=== PATIENT | male | born 1980 | race Caucasian/White ===

== ENCOUNTER → 2018-01-06 | Outpatient (CLI) | payer SELFPAY | END | disposition home or self-care (01) | LOC: LAB 08:10 | PROVIDERS: ATTEND Pathology Anatomic Pathology & Clinical Pathology | DX: Z53.9 Procedure and treatment not carried out, unspecified reason (principal) ==

== ENCOUNTER 2020-09-19 09:49 | Day surgery (SDC) | payer BC ==
[2020-09-13 14:00] VITALS: BMI 34.5
[~2020-09-19 09:49] MED LIST: LACTATED RINGERS 1,000 ML IV SCH; LIDOCAINE 1% (10MG/ML) FOR IV START INTRADERMA PRN
[2020-09-19 10:04] VITALS: TEMP 98.7
[2020-09-19] MEDS ORDERED: LACTATED RINGERS 1,000 ML IV ONE (10:04)
[2020-09-19] MEDS ORDERED: PROPOFOL 10 MG/ML 20 ML VIAL IV ONE (11:04)
--- NOTE | 2020-09-19 11:35 | P.PCN ---
Date of Procedure: 09/19/20 Description of Procedure: BRIEF HISTORY: Patient is a 39-year-old male presenting for outpatient colonoscopy for evaluation of family history of colon cancer. He reports colon cancer in his grandmother in high-risk polyps in his mother. Denies any change in bowel habits, blood per rectum or prior colonoscopy. PROCEDURE PERFORMED: Colonoscopy. PREOPERATIVE DIAGNOSIS: Family history of colon cancer, no prior colonoscopy. ESTIMATED BLOOD LOSS: Minimal. IV sedation per Anesthesia. PROCEDURE: After informed consent was obtained, the patient, was brought into the endoscopy unit. IV sedation was administered by Anesthesia under continuous monitoring. Digital rectal examination was normal. Initially the Olympus CF-190 flexible video colonoscope was then inserted in the rectum, gradually advanced into the cecum without any difficulty. Careful examination was performed as the scope was gradually being withdrawn. Ileocecal valve and the appendiceal orifice were visualized and appeared normal. Prep was excellent. Mucosa of the cecum, ascending colon, transverse colon, descending colon, sigmoid colon, and rectum appeared normal. Retroflexion was performed in the rectum and no lesions were seen, low-grade internal hemorrhoids seen. The patient tolerated the procedure well. IMPRESSION: Normal-appearing colon from rectum to cecum. Internal hemorrhoids. RECOMMENDATIONS: Findings of this examination were discussed with the patient and his family. Okay to resume diet. Okay to resume medications. Recommendation is for repeat colonoscopy in 5 years family history of colon cancer..
[2020-09-19 11:42] VITALS: RESP 16
[2020-09-19 11:54] VITALS: BP 105/71; PULSE 81
== END 2020-09-19 12:30 | disposition home or self-care (01) ==
LOC: ORWHC2ENDO 09:49
PROVIDERS: ATTEND Internal Medicine
DX: Z12.11 Encounter for screening for malignant neoplasm of colon (principal); K64.8 Other hemorrhoids; I10 Essential (primary) hypertension; E78.5 Hyperlipidemia, unspecified; Z80.0 Family history of malignant neoplasm of digestive organs; Z83.71 Family history of colonic polyps; Z87.891 Personal history of nicotine dependence; Z88.5 Allergy status to narcotic agent; Z79.899 Other long term (current) drug therapy; Z79.891 Long term (current) use of opiate analgesic; Z79.1 Long term (current) use of non-steroidal anti-inflammatories (NSAID); Z98.890 Other specified postprocedural states; Z96.5 Presence of tooth-root and mandibular implants
CPT/HCPCS: G0105; J2704; 45378

== ENCOUNTER → 2022-08-20 | Outpatient (CLI) | payer BC ==
--- NOTE | 2022-08-20 09:18 | MR ---
EXAMINATION TYPE: MR brain wo/w con DATE OF EXAM: 08/20/2022 COMPARISON: Prior MRI brain 2016 HISTORY: HEADACHE TECHNIQUE: Multiplanar, multisequence images of the brain and brainstem is performed without and with IV contras t, utilizing 11 mL intravenous Gadavist . FINDINGS: Diffusion weighted images demonstrate no evidence of a recent infarct or other diffusion ab normality. The ventricular system and cisternal spaces are normal in size and appearance. The brain volume is age appropriate. T2 Star weighted images show no suspicious intraparenchymal blood product. There are scattered foci of T2 hyperintensity redemonstrated throughout the white matter bilaterally . Lesions are nonspecific in appearance and distribution. Approximately 10-15 scattered lesions are s een. Midline structures demonstrate normal morphology. The craniocervical junction appears within normal limits. Post contrast images demonstrate no abnormal enhancement. The dural venous sinuses appear pa tent. The visualized sinuses are clear and the globes are intact. IMPRESSION: Mild nonspecific white matter changes redemonstrated. Product of migraine headaches needs to be considered. No significant change from prior MRI.
== END | disposition home or self-care (01) ==
LOC: RADMRIMAIN 06:24
PROVIDERS: ATTEND Family Medicine
DX: R51.9 Headache, unspecified (principal)
CPT/HCPCS: 70553; A9585

== ENCOUNTER → 2023-09-12 | Outpatient (CLI) | payer BC ==
--- NOTE | 2023-09-12 09:08 | CA ---
Exercise Stress Test Report Name: Nestor Harmon Exam Date: 09/12/2023 08:08 Exam Location: [place] Stress Ht (in): 72 Wt (lb): 258 BSA: 2.37 Ordering Phys: Lacho Stevens DO Referring Phys: Yolanda Fernandez Technologist: Arnaldo Zaidi Age: 42 Gender: M : 1980 Procedure CPT: Indications: R42 DIZZINESS AND GIDDINESS Z82.49 FAMILY HX OF IS ICD-10 Codes: Patient History: Chest pain and palpitations Medications: Meds past 24 hrs: Pretest Chest Pain: STRESS TEST Get Protocol Exercise Duration (min:sec): 08:[address] Depressions (mm): Angina Score: Eng Score: Resting HR (bpm): 93 Peak HR (bpm): 159 Resting BP (mmHg): 135 / 92 Peak BP (mmHg): 172 / 67 MPHR: 176 Target HR: 150 % MPHR: 90 METS: 10.3 Total Dose: Peak Dose: Atropine: Double Product: 74688 BP Response: Stress Termination: Reached target heart rate Stress Symptoms: No chest pain or symptoms Stress Summary: ECG ANALYSIS Resting ECG: Stress ECG: CONCLUSIONS Baseline EKG revealed a normal sinus rhythm without significant ST-T changes. Patient walked on a standard Get protocol for a total duration of 8 minutes and 10 seconds. He did not have any angina there was no arrhythmia. Resting heart rate was 93 bpm. Peak heart rate was 159 bpm available 85% of predicted maximal. Resting blood pressure was 135/92 and peak blood pressure was 172/67. By EKG criteria this is a negative stenosis with fair exercise capacity. Dr. Sherry Veras MD (Electronically Signed) Final Date: 12 September 2023 09:08
--- NOTE | 2023-09-12 09:10 | CA ---
Transthoracic Echo Report Name: Nestor Harmon Age: 42 Gender: M : 1980 Exam Date: 09/12/2023 07:40 Exam Location: [place] Echo Ht (in): 72 Wt (lb): 258 Ordering Physician: Lacho Stevens DO Attending/Referring Phys: Yolanda Fernandez [facility] Sales Service Route Manager Kya Martins, SOWMYA Procedure CPT: Indications: R42 DIZZINESS AND GIDDINESS Z82.49 FAMILY HX OF IS Cardiac Hx: Technical Quality: Fair Contrast 1: Total Dose (mL): Contrast 2: Total Dose (mL): MEASUREMENTS (Male / Female) Normal Values 2D ECHO LV Diastolic Diameter PLAX 4.5 cm 4.2 - 5.9 / 3.9 - 5.3 cm LV Systolic Diameter PLAX 2.5 cm IVS Diastolic Thickness 1.4 cm 0.6 - 1.0 / 0.6 - 0.9 cm LVPW Diastolic Thickness 1.2 cm 0.6 - 1.0 / 0.6 - 0.9 cm LV Relative Wall Thickness 0.6 RV Internal Dim ED PLAX 3.9 cm M-MODE Aortic Root Diameter MM 3.5 cm LA Systolic Diameter MM 1.9 cm LA Ao Ratio MM 0.5 AV Cusp Separation MM 3.9 cm DOPPLER AV Peak Velocity 132.7 cm/s AV Peak Gradient 7.0 mmHg AV Mean Velocity 92.7 cm/s AV Mean Gradient 3.8 mmHg AV Velocity Time Integral 22.2 cm LVOT Peak Velocity 125.5 cm/s LVOT Peak Gradient 6.3 mmHg LVOT Velocity Time Integral 21.8 cm Mitral E Point Velocity 76.9 cm/s Mitral A Point Velocity 89.8 cm/s Mitral E to A Ratio 0.9 MV Deceleration Time 244.3 ms MV E' Velocity 8.6 cm/s Mitral E to MV E' Ratio 8.9 TR Peak Velocity 224.2 cm/s TR Peak Gradient 20.1 mmHg Right Ventricular Systolic Press 30.1 mmHg FINDINGS Left Ventricle Mildly increased left ventricular wall thickness. Left ventricular cavity size normal. Normal left ventricular systolic function with no obvious regional wall motion abnormalities. Left ventricular ejection fraction is estimated at 55-60 %. Right Ventricle Mild right ventricular dilatation. Right ventricular systolic pressure within normal limits. Right Atrium Normal right atrial size. Left Atrium Normal left atrial size. Mitral Valve Structurally normal mitral valve. Trace to mild mitral regurgitation. Aortic Valve Trileaflet aortic valve. No aortic valve stenosis or regurgitation. Tricuspid Valve Structurally normal tricuspid valve. Mild tricuspid regurgitation. Pulmonic Valve Structurally normal pulmonic valve. Pericardium No pericardial effusion. Aorta Normal size aortic root and proximal ascending aorta. CONCLUSIONS Normal LV size and systolic function. No significant abnormality on the Doppler exam. No pericardial effusion Previewed by: Dr. Sherry Veras MD (Electronically Signed) Final Date: 12 September 2023 09:09
== END ==
LOC: RADECHMAIN 07:19
PROVIDERS: ATTEND Family Medicine
DX: R42 Dizziness and giddiness (principal); R00.2 Palpitations; Z82.49 Family history of ischemic heart disease and other diseases of the circulatory system
CPT/HCPCS: 93017; 93306

== ENCOUNTER → 2023-09-19 | Outpatient (CLI) | payer BC ==
--- NOTE | 2023-09-20 22:33 | US ---
EXAMINATION TYPE: US carotid duplex BILAT DATE OF EXAM: 09/19/2023 COMPARISON: NONE CLINICAL INDICATION: Male, 42 years old with history of R42 DIZZINESS AND GIDDINESS Z82.49 FAMILY HX OF IS; extensive family history of cardiovascular disease, left neck and arm pain, chronic migraines TECHNIQUE: Carotid duplex ultrasound examination. Indirect Doppler criteria was utilized. FINDINGS: EXAM MEASUREMENTS: RIGHT: Peak Systolic Velocity (PSV) cm/sec ----- Right CCA: 116 ----- Right ICA: 99.4 ----- Right ECA: 119 ICA/CCA ratio: 0.9 RIGHT: End Diastole cm/sec ----- Right CCA: 29.5 ----- Right ICA: 30.5 ----- Right ECA: 23.4 LEFT: Peak Systolic Velocity (PSV) cm/sec ----- Left CCA: 106 ----- Left ICA: 118 ----- Left ECA: 119 ICA/CCA ratio: 1.1 LEFT: End Diastole cm/sec ----- Left CCA: 31.2 ----- Left ICA: 42.5 ----- Left ECA: 28.6 VERTEBRALS (direction of flow): Right Vertebral: Antegrade Left Vertebral: Antegrade Rhythm: Normal SCREED PERSON NOTES: Mild homogeneous plaque with no stenosis seen IMPRESSION: 1. Atheromatous plaquing without significant flow-limiting stenosis based on velocities. Criteria for Assigning % of Stenosis / Diameter reduction (Estimation based on the indirect measurements of the internal carotid artery velocities (ICA PSV). 1. Normal (no stenosis)=ICA PSV < 125 cm/s: ratio < 2.0: ICA EDV<40 cm/s. 2. Less than 50% stenosis=ICA PSV < 125 cm/s: ratio < 2.0: ICA EDV<40 cm/s. 3. 50 to 69% stenosis=ICA PSV of 125 to 230 cm/s: ration 2.0 ? 4.0: ICA EDV 40-100 cm/s. 4. Greater than 70% stenosis to near occlusion= ICA PSV > 230 cm/s: ratio > 4.0: ICA EDV > 100 cm/s. 5. Near occlusion= ICA PSV velocities may be low or undetectable: variable ratio and ICA EDV. 6. Total occlusion=unable to detect flow.
== END | disposition home or self-care (01) ==
LOC: RADUSWWP 12:30
PROVIDERS: ATTEND Family Medicine
DX: I65.23 Occlusion and stenosis of bilateral carotid arteries (principal); M54.2 Cervicalgia; G43.709 Chronic migraine without aura, not intractable, without status migrainosus; Z82.49 Family history of ischemic heart disease and other diseases of the circulatory system
CPT/HCPCS: 93880

== ENCOUNTER → 2024-08-06 | Outpatient (CLI) | payer BC ==
--- NOTE | 2024-08-06 11:45 | BD ---
EXAMINATION TYPE: Axial Bone Density DATE OF EXAM: 08/06/2024 CLINICAL HISTORY: 43 years old Male. ICD-10 CODE: Z79.[address] MAGISTRATE SYSTEMIC STEROIDS , Additional Hi story: Height: 71 Weight: 239 FRAX RISK QUESTIONS: Family History (Parent hip fracture): no Glucocorticoids (More than 3mos): yes (Ex: prednisone, prednisolone, methylprednisolone, dexamethasone, and hydrocortisone). History of Fracture in Adulthood: no Secondary Osteoporosis: no RISK FACTORS HISTORY OF: Surgery to Spine/Hip(right/left)/Wrist (right/left): no MEDICATIONS: Thyroid Medications: no Osteoporosis Medications: no EXAM MEASUREMENTS: Bone mineral densitometry was performed using the [employer]asaur[employer] System. Bone mineral density as measured about the Lumbar spine is: ----- L1-L4(G/cm2): 1.117 T Score Values are as follows: ----- L1: -1.6 ----- L2: -1.1 ----- L3: -0.2 ----- L4: 0.3 ----- L1-L4: -0.5 Z Score Values are as follows: ----- L1: -2.4 ----- L2: -2.1 ----- L3: -1.1 ----- L4: -0.6 ----- L1-L4: -1.5 Bone mineral density baseline Bone mineral density about the R hip (g/cm2): 1.005 Bone mineral density about the L hip (g/cm2): 1.012 T Score values are as follows: -----R Neck: -1.1 -----L Neck: -1.0 -----R Total: 0.0 -----L Total: 0.0 Z Score values are as follows: -----R Neck: -1.4 -----L Neck: -1.4 -----R Total: -0.8 -----L Total: -0.8 Bone mineral density baseline FRAX%s: The graph provided illustrates a 4.3% chance for a major osteoporotic fx and a 0.5% chance fo r the hips probability for fx in 10 years time. IMPRESSION: Osteopenia (T Score between -2.5 and -1). There is slightly increased risk of fracture and the patient may be considered for treatment. Re-Screen 2-5 years. NOTE: T-SCORE=SD OF THE YOUNG ADULT MEAN. [facility], , 08/06/2024 11:43 AM
== END | disposition home or self-care (01) ==
LOC: RADBDWWP 07:19
PROVIDERS: ATTEND Family Medicine
DX: M85.89 Other specified disorders of bone density and structure, multiple sites (principal); Z79.52 Long term (current) use of systemic steroids
CPT/HCPCS: 77080

== ENCOUNTER → 2024-09-09 | Outpatient (CLI) | payer BC ==
--- NOTE | 2024-09-09 10:16 | XR ---
EXAMINATION TYPE: XR knee complete LT DATE OF EXAM: 09/09/2024 9:25 AM COMPARISON: None CLINICAL INDICATION: Male, 43 years old with history of S89.92XA UNSPECIFIED INJURY OF LEFT LOWER LEG , INI, , TECHNIQUE: 3 views FINDINGS: Extensor mechanism is intact. No acute fracture, subluxation, or dislocation. No joint effusion. IMPRESSION: No acute osseous abnormality seen. [facility], , 09/09/2024 10:13 AM
== END | disposition home or self-care (01) ==
LOC: RADXRMAIN 09:01
PROVIDERS: ATTEND Family Medicine
DX: S89.92XA Unspecified injury of left lower leg, initial encounter (principal); X58.XXXA Exposure to other specified factors, initial encounter